=== PATIENT | male | born 1975 | race Two or more races ===

== ENCOUNTER → 2020-02-06 | Emergency (ER) | payer MEDICAID ==
[~2020-02-06] VITALS: Ht 182.9 cm; Wt 104.3 kg
[2020-02-07 00:55] VITALS: BP 149/97
== END | disposition home or self-care (01) ==
LOC: ER 22:02
DX: S62.512A Displaced fracture of proximal phalanx of left thumb, initial encounter for closed fracture (principal); I10 Essential (primary) hypertension; F17.210 Nicotine dependence, cigarettes, uncomplicated; Z98.890 Other specified postprocedural states; X58.XXXA Exposure to other specified factors, initial encounter; Y93.89 Activity, other specified; Y92.89 Other specified places as the place of occurrence of the external cause; Y99.8 Other external cause status
CPT/HCPCS: 29125; 73130

== ENCOUNTER 2025-05-30 02:20 | Emergency (ER) | payer MEDICAID ==
[~2025-05-30] VITALS: Ht 182.9 cm; Wt 104.5 kg
[2025-05-30 02:36] VITALS: RESP 19; TEMP 97.5; O2SAT 97
[2025-05-30 02:49] VITALS: PULSE 70
--- NOTE | 2025-05-30 03:32 | DVH ---
CHEST RADIOGRAPH Indication: Hypertension Technique: Single frontal view of the chest was obtained COMPARISON: None FINDINGS: Lines and Tubes: None Lungs: Clear Pleura: No effusion. No pneumothorax. Cardiomediastinal contours: Unremarkable Bones: Unremarkable IMPRESSION: 1. No acute disease.
[2025-05-30 03:33] LABS: Hematocrit 47.8 % (41.0-53.0); Hemoglobin 16.7 g/dL (13.5-17.5); Mean Corpuscular Hemoglobin 30.3 pg (28.0-32.0); Mean Corpuscular Volume 86.7 fL (80.0-100.0); Nucleated Red Blood Cells % 0.1 %
[2025-05-30 03:41] LABS: Chloride 101 mmol/L (98-107); Potassium 3.8 mmol/L (3.5-5.1); Sodium 139 mmol/L (136-145)
[2025-05-30 03:42] LABS: Anion Gap 7 (5-15); Carbon Dioxide 31 mmol/L (20-31)
[2025-05-30 03:43] LABS: Calcium 9.5 mg/dL (8.7-10.4)
[2025-05-30 03:48] LABS: BUN/Creatinine Ratio 15.5 (10.0-20.0); Blood Urea Nitrogen 18 mg/dL (9-23)
[2025-05-30 04:13] LABS: Glucose 115 mg/dL (74-106)
--- NOTE | 2025-05-30 04:14 | ED.PDOC ---
History of Present Illness HPI Comments 50-year-old male presents with chief complaint of hypertension, with associated intermittent shortness of breath, fatigue, headache, lightheadedness, dizziness, nausea, chills, cold sweats, and lip numbness. Patient reports checking and noticing his blood pressure being elevated and having symptoms since yesterday. Last measured his blood pressure at 1700, yesterday, and reports it being in the 200's systolically then. History of noncompliance and HTN. Patient reports on not taking any mediations for his blood pressure for several years but monitors it, daily. He denies any chest pain, palpitations, vomiting, urinary symptoms, fever, or further associated symptoms. Chief Complaint: High Blood Pressure Time Seen by MD: 03:30 Reviewed Notes: Nurses Notes, Medications, Allergies Allergies: Coded Allergies: NO KNOWN ALLERGIES (Unverified , 02/06/20) Information Source: Patient Mode of Arrival: Wheelchair Severity: Moderate Timing: Hours Duration: Since onset Prehospital treatment: None Review of Systems: REVIEW OF SYSTEMS: Fatigue. Chills, cold sweats, No fever, HEENT: Lip numbness No neck pain, no blurred vision Cardiac: Hypertension. Lightheadedness. No chest pain. No palpitations. Lungs: shortness of breath, GI: nausea No abdominal pain, no vomiting Musculoskeletal: No joint pain , no back pain Skin: No rash, no wound Neuro: headache, dizziness, no syncope Vital Signs Vital Signs Date Time Temp Pulse Resp B/P (MAP) Pulse Ox O2 Delivery O2 Flow Rate FiO2 05/30/25 04:37 182/120 (140) 05/30/25 02:49 70 05/30/25 02:36 97.5 19 97 97.5 Physical Exam General: Awake, alert and oriented. No acute distress. Skin: Skin in warm, dry and intact without rashes or lesions. HEENT: The head is normocephalic and atraumatic. Conjunctivae are clear without exudates or hemorrhage. Sclera is non-icteric. Neck: Normal range of motion. No JVD. Cardiac: Regular rate Respiratory: No signs of respiratory distress. No Stridor. Extremities: Upper and lower extremities are atraumatic in appearance without deformity. Neurological: The patient is awake, alert and oriented to person, place, and time with normal speech. Speech is clear. There is no facial asymmetry. Psychiatric: Appropriate mood and affect. Good judgement and insight. Past Medical History PAST MEDICAL HISTORY: HTN Past Medical History (Other): Noncompliance Surgical History (Other): Vasectomy Family History Family History: Reviewed,noncontributory to illness Social History Smoker: Cigarettes Alcohol: Occasionally Drugs: Denies Drug Use, Methamphetamine Differential Dx Considerations may include: Differential diagnoses considered include acute ischemic coronary syndrome, aortic dissection, cardiac tamponade, mediastinitis, pulmonary embolus, pneumothorax, tension pneumothorax, esophageal rupture, coronary artery vasospasm, myocarditis, pericarditis, pneumonia, pulmonary edema, esophageal tear, pancreatitis, aortic stenosis, dilated cardiomyopathy, hypertrophic cardiomyopathy, mitral valve prolapse, malignancy, pleuritis, pneumomediastinum, primary pulmonary hypertension, cholecystitis, esophageal spasm, esophagus, gastritis, GERD, peptic ulcer disease, costochondritis, fibromyalgia, rib fracture, herpes zoster, radicular syndromes, thoracic outlet syndrome, somatization. Medication noncompliance, hypertensive emergency X-Ray, Labs, Meds, VS Vital Signs Date Time Temp Pulse Resp B/P (MAP) Pulse Ox O2 Delivery O2 Flow Rate FiO2 05/30/25 04:37 182/120 (140) 05/30/25 04:37 182/120 05/30/25 02:58 195/124 05/30/25 02:49 70 05/30/25 02:36 97.5 76 19 195/124 (147) 97 97.5 Lab Test 05/30/25 03:14 Range/Units White Blood Count 11.1 H 4.4-10.8 10^3/uL Red Blood Count 5.52 4.5-5.90 10^6/uL Hemoglobin 16.7 13.5-17.5 g/dL Hematocrit 47.8 41.0-53.0 % Mean Corpuscular Volume 86.7 80.0-100.0 fL Mean Corpuscular Hemoglobin 30.3 28.0-32.0 pg Mean Corpuscular Hemoglobin Concent 34.9 32.0-36.0 g/dL Red Cell Distribution Width 14.5 H 11.8-14.3 % Platelet Count 258 140-450 10^3/uL Mean Platelet Volume 8.1 6.9-10.8 fL Neutrophils (%) (Auto) 74.1 37.0-80.0 % Lymphocytes (%) (Auto) 17.5 10.0-50.0 % Monocytes (%) (Auto) 6.4 0.0-12.0 % Eosinophils (%) (Auto) 1.3 0.0-7.0 % Basophils (%) (Auto) 0.7 0.0-2.0 % Neutrophils # (Auto) 8.2 1.6-8.6 10 ^3/uL Lymphocytes # (Auto) 1.9 0.4-5.4 10 ^3/uL Monocytes # (Auto) 0.7 0-1.3 10 ^3/uL Eosinophils # (Auto) 0.1 0-0.8 10 ^3/uL Basophils # (Auto) 0.1 0-0.2 10 ^3/uL Nucleated Red Blood Cells 0.1 % Sodium Level 139 136-145 mmol/L Potassium Level 3.8 3.5-5.1 mmol/L Chloride Level 101 98-107 mmol/L Carbon Dioxide Level 31 20-31 mmol/L Anion Gap 7 5-15 Blood Urea Nitrogen 18 9-23 mg/dL Creatinine 1.16 0.700-1.30 mg/dL Glomerular Filtration Rate Calc 76 >90 mL/min BUN/Creatinine Ratio 15.5 10.0-20.0 Serum Glucose 115 H 74-106 mg/dL Calcium Level 9.5 8.7-10.4 mg/dL Troponin I High Sensitivity 12 </=54 ng/L B-Type Natriuretic Peptide 6.45 0-100 pg/mL Current Medications Medications (Trade) Dose Ordered Sig/Aung Route Start Time Stop Time Status Last Admin Clonidine HCl (Catapres Tablet) 0.2 mg ONCE ONCE PO 05/30/25 03:00 05/30/25 03:01 DC 05/30/25 02:58 Ondansetron HCl (Zofran Po) 4 mg ONCE ONCE PO 05/30/25 04:00 05/30/25 04:01 DC 05/30/25 04:[address] [address] Ph: [phone] DIAGNOSTIC IMAGING Diagnostic Imaging Report : [id number] Signed PATIENT: TANNER REED ACCT: [id number] UNIT: [id number] : 1975 LOC: ER ROOM / BED: / AGE / SEX: 50 / M ADM STATUS: REG ER SERVICE 8 ORDERING PHYSICIAN: KYREE FREDERICK MD PROCEDURE(s): CXR1 - CHEST XRAY 1 VIEW REASON: Hypertension ORDER NUMBER(s): [id number], ACCESSION NUMBER(s): [id number] CHEST RADIOGRAPH Indication: Hypertension Technique: Single frontal view of the chest was obtained COMPARISON: None FINDINGS: Lines and Tubes: None Lungs: Clear Pleura: No effusion. No pneumothorax. Cardiomediastinal contours: Unremarkable Bones: Unremarkable IMPRESSION: 1. No acute disease. ATED BY: FRANK ESPITIA MD DICTATED DATE/TIME: 05/30/25328 SIGNED BY: FRANK ESPITIA MD SIGNED DATE/TIME: 05/30/25328 CC: Time of 1ST Reevaluation: 04:00 Reevaluation 1ST: Unchanged Patient Education/Counseling: Other (Need for admission) Family Education/Counseling: No Family Present SEPSIS Sepsis Screen Date sepsis recognized/suspect: May 30, 2025 Time Sepsis recognized/suspect: 224 Recent Procedure: No On Antibiotic Therapy: No Respiratory Rate >20: No Heart Rate >90: No Temp<36 C (96.8 F) or >38.3 C: No SBP <90 or MAP <65 mmHG: No New Acute Mental Status Change: No Is the patient on CPAP, BIPAP,: No Physician Orders Chest Xray 1 View (05/30/25 02:49) Oxygen (05/30/25 ) Community Services Manager (05/30/25 ) Covid19 Antigen Julieta (05/30/25 ) Rapid Influenza A&B (05/30/25 04:36) Vital Signs Date Time Temp Pulse Resp B/P (MAP) Pulse Ox O2 Delivery O2 Flow Rate FiO2 05/30/25 04:37 182/120 (140) 05/30/25 04:37 182/120 05/30/25 02:58 195/124 05/30/25 02:49 70 05/30/25 02:36 97.5 76 19 195/124 (147) 97 97.5 Laboratory Tests Test 05/30/25 03:14 White Blood Count 11.1 10^3/uL (4.4-10.8) H Departure 1 Departure Time of Disposition: 04:36 Impression: Primary Impression: Hypertensive urgency Disposition: 09 ADMITTED INPATIENT Condition: Stable Comments 50-year-old male with a untreated hypertension presents with hypertensive urgency Patient is stabilized in the emergency department Patient admitted to hospitalist service for further treatment, evaluation and monitoring. Extensive evaluation was performed in attempt to identify or rule out: (See differential diagnosis section) The following tests were ordered, and results were reviewed by me and discussed with patient: (See diagnostic results section) The following test were independently interpreted by me: EKG I reviewed and agreed with the following test results read by other providers: Chest x-ray I reviewed the following notes from the pt's past medical encounters: April 07, 2020 encounter for hand. Additional information was gathered from interviewing the following independent historians: N/A Discussion of management or test interpretation with external physician/other qualified health neonatal intensive care nurse: N/A Addressed an acute or chronic illness that poses a threat to life or bodily function: Hypertensive urgency Decision regarding hospitalization or escalation of hospital level of care: Risk and benefits of admission for further treatment of patient's condition was considered. Due to patient's current clinical condition, high risk of decline and poor outcome if discharged and need for further inpatient management and monitoring, patient will be admitted to the hospital. Drug therapy requiring intensive monitoring for toxicity: N/A Parenteral controlled substances: N/A Decision regarding elective major surgery with identified patient or procedure risk factors: N/A Decision regarding emergency major surgery: N/A Decision not to resuscitate or to de-escalate care because of poor prognosis: N/A Diagnosis or treatment significantly limited by social determinants of health: N/A Critical Care Note Critical Care Time?: No Stability Stability form required: No Heart Score Heart Score: Heart Score Response (Comments) Value History N/A 0 EKG N/A 0 Age N/A 0 Risk Factors N/A 0 Troponin N/A 0 Total 0 I personally scribed for KYREE FREDERICK MD ([email or web address]) on 05/30/25 at 04:14. Electronically submitted by Aubrey Gilbert ([email or web address]). KYREE FREDERICK MD May 30, 2025 04:14
[2025-05-30] MEDS: ONDANSETRON ODT 4 MG TAB PO ONE (04:36)
[2025-05-30 04:37] VITALS: BP 182/120
[2025-05-30] MEDS ORDERED: LABETALOL HCL 20 MG/4 ML VL IV ONE (04:45)
--- NOTE | 2025-05-30 09:57 | ECG ---
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
== END 2025-05-30 09:29 | disposition left against medical advice (07) ==
LOC: ER 02:20
DX: I16.0 Hypertensive urgency (principal); F17.210 Nicotine dependence, cigarettes, uncomplicated
CPT/HCPCS: 36415; 71045; 80048; 83880; 84484; 85025; 93005; 99285; Q0162; 96374

== ENCOUNTER 2025-09-15 16:18 | Inpatient (IN) | payer MEDICAID ==
[~2025-09-15] VITALS: Ht 182.9 cm; Wt 104.0 kg
--- NOTE | 2025-09-15 16:32 | ED.PDOC ---
History of Present Illness HPI Comments This is a 50 year-old male who presents to the ED via EMS with a chief complaint of HTN with associated symptoms of fatigue, nausea, and general weakness as of today. Per EMS, patients blood pressure read 206/118. Patient states he is not currently taking any medication for diagnosed HTN. Patient has no further complaints at this time and otherwise denies symptoms of chest pain, emesis, hematemesis, palpitations, dizziness, or LOC. Time Seen by MD: 16:21 Reviewed Notes: Medications, Allergies Allergies: Coded Allergies: NO KNOWN ALLERGIES (Unverified , 02/06/20) Information Source: Patient, Emergency Med Personnel Mode of Arrival: EMS Severity: Moderate Timing: Hours Duration: Since onset Associated signs and symptoms Fatigue, Weakness, Nausea, HTN Past Medical History PAST MEDICAL HISTORY: HTN Family History Family History: Reviewed,noncontributory to illness Social History Smoker: Cigarettes, Other (Vape ) Alcohol: Occasionally Drugs: Methamphetamine Lives In: Home Constitutional: reports: fatigue, weakness; denies: chills, diaphoresis, fever, malaise, sweats, others EENTM: denies: blurred vision, double vision, ear bleeding, ear discharge, ear drainage, ear pain, ear ringing, eye pain, eye redness, hearing loss, mouth pain, mouth swelling, nasal discharge, nose bleeding, nose congestion, nose pain, photophobia, tearing, throat pain, throat swelling, voice changes, others Respiratory: denies: cough, hemoptysis, orthopnea, SOB at rest, shortness of breath, SOB with excertion, stridor, wheezing, others Cardiovascular: denies: chest pain, dizzy spells, diaphoresis, Dyspnea on exertion, edema, irregular heart beat, left arm pain, lightheadedness, palpitations, PND, syncope, others Gastrointestinal: reports: nausea; denies: abdomen distended, abdominal pain, blood streaked bowels, constipated, diarrhea, dysphagia, difficulty swallowing, hematemesis, melena, poor appetite, poor fluid intake, rectal bleeding, rectal pain, vomiting, others Genitourinary: denies: burning, dysuria, flank pain, frequency, hematuria, incontinence, penile discharge, penile sore, pain, testicle pain, testicle swelling, urgency, others Neurological: denies: dizziness, fainting, headache, left sided numbness, left sided weakness, numbness, paresthesia, pre-existing deficit, right sided numbness, right sided weakness, seizure, speech problems, tingling, tremors, weakness, others Musculoskeletal: denies: back pain, gout, joint pain, joint swelling, muscle pain, muscle stiffness, neck pain, others Integumetry: denies: bruises, change in color, change in hair/nails, dryness, laceration, lesions, lumps, rash, wounds, others Allergic/Immunocompromised: denies: Difficulty Healing, Frequent Infections, Hives, Itching, others Hematologic/Lymphatic: denies: anemia, blood clots, easy bleeding, easy bruising, swollen glands, others Endocrine: denies: excessive hunger, excessive sweating, excessive thirst, excessive urination, flushing, intolerance to cold, intolerance to heat, unexplained weight gain, unexplained weight loss, others Psychiatric: denies: anxiety, bipolar disorder, depression, hopeless, panic disorder, schizophrenia, sleepless, suicidal, others All Other Systems: Reviewed and Negative Physical Exam General Appearance: Moderate Distress HEENT: Normal ENT Inspection, Pharynx Normal, TMs Normal Neck: Full Range of Motion, Non-Tender, Normal, Normal Inspection Respiratory: Chest Non-Tender, Lungs Clear, No Accessory Muscle Use, No Respiratory Distress, Normal Breath Sounds Cardiovascular: No Edema, No JVD, No Murmur, No Gallop, Normal Peripheral Pulses, Regular Rate/Rhythm Breast Exam: Deferred Gastrointestinal: No Organomegaly, Non Tender, No Pulsatile Mass, Normal Bowel Sounds, Soft Genitalia: Deferred Pelvic: Deferred Rectal: Deferred Extremities: No calf tenderness, Normal capillary refill, Normal inspection, Normal range of motion, Non-tender, No pedal edema Musculoskeletal : Apperance: Normal Neurologic: Alert, planimeter operator II-XII nml as Tested, No Motor Deficits, Normal Affect, Normal Mood, No Sensory Deficits Cerebellar Function: Normal Reflexes: Normal Skin: Dry, Normal Color, Warm Peripheral Pulses: 3+ Radial (R), 3+ Radial (L) Lymphatic: No Adenopathy Was a procedure done? Was a procedure done?: No EKG EKG : Pulse Rate (adult): 78 [place]: Normal Cardiac Rhythm: NSR Block: None Hypertrophy: None ST: Normal Differential Dx Considerations may include: HTN X-Ray, Labs, Meds, VS Vital Signs Date Time Temp Pulse Resp B/P (MAP) Pulse Ox O2 Delivery O2 Flow Rate FiO2 09/15/25 16:40 98.6 80 20 180/120 99 98.6 09/15/25 16:34 78 09/15/25 16:18 78 Lab Test 09/15/25 16:48 Range/Units White Blood Count 7.6 4.4-10.8 10^3/uL Red Blood Count 4.99 4.5-5.90 10^6/uL Hemoglobin 14.8 13.5-17.5 g/dL Hematocrit 43.0 41.0-53.0 % Mean Corpuscular Volume 86.2 80.0-100.0 fL Mean Corpuscular Hemoglobin 29.6 28.0-32.0 pg Mean Corpuscular Hemoglobin Concent 34.3 32.0-36.0 g/dL Red Cell Distribution Width 13.8 11.8-14.3 % Platelet Count 274 140-450 10^3/uL Mean Platelet Volume 8.1 6.9-10.8 fL Neutrophils (%) (Auto) 70.9 37.0-80.0 % Lymphocytes (%) (Auto) 19.1 10.0-50.0 % Monocytes (%) (Auto) 8.1 0.0-12.0 % Eosinophils (%) (Auto) 1.2 0.0-7.0 % Basophils (%) (Auto) 0.7 0.0-2.0 % Neutrophils # (Auto) 5.4 1.6-8.6 10 ^3/uL Lymphocytes # (Auto) 1.4 0.4-5.4 10 ^3/uL Monocytes # (Auto) 0.6 0-1.3 10 ^3/uL Eosinophils # (Auto) 0.1 0-0.8 10 ^3/uL Basophils # (Auto) 0 0-0.2 10 ^3/uL Nucleated Red Blood Cells 0.1 % Sodium Level Pending Potassium Level Pending Chloride Level Pending Carbon Dioxide Level Pending Anion Gap Pending Blood Urea Nitrogen Pending Creatinine Pending Glomerular Filtration Rate Calc Pending BUN/Creatinine Ratio Pending Serum Glucose Pending Calcium Level Pending Troponin I High Sensitivity Pending Patient alert. Complaining of having high blood pressure. Chest discomfort. Vitals stable. Answering questions. EKG reviewed does not show any acute changes. Was given clonidine. He does not take blood pressure medication. Possibly will need echocardiogram. High-risk. Explained to the patient. Continue monitoring. Images Reviewed?: Images reviewed and evaluated by me Time of 1ST Reevaluation: 17:18 Reevaluation 1ST: Unchanged Patient Education/Counseling: Diagnosis, Treatment Family Education/Counseling: No Family Present SEPSIS Sepsis Screen Physician Orders Troponin-I Hs (09/15/25 16:24) Basic Metabolic Panel (09/15/25 16:24) Electrocardigram (09/15/25 16:46) Vital Signs Date Time Temp Pulse Resp B/P (MAP) Pulse Ox O2 Delivery O2 Flow Rate FiO2 09/15/25 16:40 98.6 80 20 180/120 99 98.6 09/15/25 16:34 78 09/15/25 16:18 78 Laboratory Tests Test 09/15/25 16:48 White Blood Count 7.6 10^3/uL (4.4-10.8) Departure 1 Departure Time of Disposition: 17:00 Impression: Primary Impression: Chest pain of unknown etiology Additional Impression: Hypertensive emergency Disposition: 09 ADMITTED INPATIENT Admit to: Med Surg Condition: Guarded Critical Care Note Critical Care Time?: Yes (90 min-critical care time only) Stability Stability form required: No Heart Score Heart Score: Heart Score Response (Comments) Value History Slightly Suspicious 0 EKG Normal 0 Age 45-64 1 Risk Factors No known risk factors 0 Troponin Normal limit 0 Total 1 I personally scribed for JOSE ROSALES MD ([email or web address]) on 09/15/25 at 16:32. Electronically submitted by Abril Rosado ([employer]). I personally scribed for JOSE ROSALES MD ([email or web address]) on 09/15/25 at 16:34. Electronically submitted by Abril Rosado ([employer]). JOSE ROSALES MD Sep 15, 2025 16:32
[2025-09-15 17:08] LABS: Hematocrit 43.0 % (41.0-53.0); Hemoglobin 14.8 g/dL (13.5-17.5); Mean Corpuscular Hemoglobin 29.6 pg (28.0-32.0); Mean Corpuscular Volume 86.2 fL (80.0-100.0); Nucleated Red Blood Cells % 0.1 %
[2025-09-15 17:18] LABS: Chloride 104 mmol/L (98-107); Potassium 3.9 mmol/L (3.5-5.1); Sodium 140 mmol/L (136-145)
[2025-09-15 17:19] LABS: Anion Gap 9 (5-15); Calcium 8.8 mg/dL (8.7-10.4); Carbon Dioxide 27 mmol/L (20-31)
[2025-09-15 17:24] LABS: BUN/Creatinine Ratio 18.0 (10.0-20.0); Blood Urea Nitrogen 18 mg/dL (9-23)
[2025-09-15 17:26] LABS: Glucose 106 mg/dL (74-106)
[2025-09-15 17:47] VITALS: PULSE 87; RESP 18; O2SAT 95
--- NOTE | 2025-09-15 18:14 | ECG ---
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
[2025-09-15] MEDS ORDERED: ACETAMINOPHEN 325 MG TAB PO PRN (18:30)
[2025-09-15] MEDS ORDERED: DOCUSATE SOD 100 MG CAP PO PRN (18:30)
[2025-09-15] MEDS ORDERED: HYDROcodone-ACET 5/325MG TAB PO PRN (18:30)
[2025-09-15] MEDS ORDERED: ONDANSETRON HCL 4 MG/2 ML VIAL IV PRN (18:30)
--- NOTE | 2025-09-15 20:09 | DVHHP2 ---
History of Present Illness Reason for Visit: Hypertensive emergency History of Present Illness The patient is a 50-year-old male with past medical history of hypertension who presented to [facility] ED with complaint of elevated blood pressure. Patient reports he has been experiencing high blood pressure associate d with fatigue, nausea, chest pressure, generalized weakness. Patient blood pressure read 206/118, states he is not currently taking any medication for diagnosed hypertension. Patient was seen and evaluated in the ED, laboratory data shows WBC 7.6, platelets 274, sodium 140, potassium 3.9, BUN 18, creatinine 1.00, glucose 106, troponin 19, blood pressure 200/122, pulse 86, temperature 98.0 F, O2 saturation 96% on room air. Patient was given clonidine 0.2 mg by mouth x1, please see medication orders section in the computer. On my assessment, patient denied chest pain, no dizziness, headache, diaphoresis, shortness of breaths, no diarrhea, nausea, vomiting, fever, no chills. Patient was admitted for further evaluation and medical management. Past Medical History Hypertension Past Surgical History Denies all surgeries Family History Reviewed, noncontributory to the management of this case. Past Social History Patient lives at home, smokes cigarettes vapes, drinks alcohol occasionally, uses methamphetamine. Review of Systems Constitutional: Yes: Weakness, Other (Fatigue); No: Fever, Chills, Sweats, Malaise Eyes: No: Pain, Vision change, Conjunctivae inflammation, Eyelid inflammation, Other, Redness ENT: No: Ear pain, Ear discharge, Nose pain, Nose discharge, Nose congestion, Mouth pain, Mouth swelling, Throat pain, Throat swelling, Other Respiratory: No: Cough, Dry, Shortness of breath, SOB with excertion, Wheezing, Hemoptysis, Pleuritic Pain, Sputum, Wheezing, Other Cardiovascular: Chest Pain, Other (Hypertension); No: Palpitations, Orthopnea, Paroxysmal Noc. Dyspnea, Edema, Lt Headedness Gastrointestinal: No: Nausea, Vomiting, Abdominal Pain, Diarrhea, Constipation, Melena, Hematochezia, Other Genitourinary: No Dysuria, No Frequency, No Incontinence, No Hematuria, No Retention, No Other Musculoskeletal: No: other, neck pain, shoulder pain, arm pain, back pain, hand pain, leg pain, foot pain Skin: No: Rash, Lesions, Jaundice, Bruising, Other Neurological: No: Weakness, Numbness, Incoordination, Change in speech, Confus ion, Seizures, Other Allergies: Coded Allergies: NO KNOWN ALLERGIES (Unverified , 02/06/20) Medications Current Medications Medications Dose Ordered Sig/Aung Route Start Time Stop Time Status Last Admin Dose Admin Amlodipine Besylate 10 mg DAILY PO 09/16/25 10:00 Clonidine HCl 0.1 mg Q4HP PRN PO 09/15/25 18:30 09/15/25 19:42 0.1 MG Metoprolol Tartrate 50 mg BID PO 09/15/25 22:00 Sodium Chloride 10 ml Q8HR IV 09/15/25 22:00 Acetaminophen/ Hydrocodone Bitart 1 tab Q4HP PRN PO 09/15/25 18:30 Ondansetron HCl 4 mg Q4HP PRN IV 09/15/25 18:30 Docusate Sodium 100 mg BIDPRN PRN PO 09/15/25 18:30 Acetaminophen 650 mg Q6HP PRN PO 09/15/25 18:30 Exam Vital Signs Vital Signs Date Time Temp Pulse Resp B/P (MAP) Pulse Ox O2 Delivery O2 Flow Rate FiO2 09/15/25 19:42 210/126 09/15/25 19:21 85 13 95 09/15/25 17:47 98.0 98.0 09/15/25 17:47 Room Air* 0 21 General Appearance: Alert, Oriented X3, Cooperative, No acute distress HEENT: Atraumatic, PERRLA, EOMI, Mucous membr. moist/pink Respiratory: Clear to auscultation, Normal air movement Cardiovascular: Regular rate, Normal S1, Normal S2, No murmurs Abdominal: Normal bowel sounds, Soft, No tenderness, No hepatospenomegaly, No masses Extremities: No clubbing, No cyanosis, No edema, Normal pulses, No tenderness/swelling Skin: No rashes, No breakdown, No significant lesion Neuro: Normal speech, Normal tone, Sensation intact, Cranial nerves 3-12 NL, Reflexes 2+, Other (Weakness) Psych/Mental Status: Mental status NL, Mood NL Labs/Xrays Labs Test 09/15/25 16:48 Range/Units White Blood Count 7.6 4.4-10.8 10^3/uL Red Blood Count 4.99 4.5-5.90 10^6/uL Hemoglobin 14.8 13.5-17.5 g/dL Hematocrit 43.0 41.0-53.0 % Mean Corpuscular Volume 86.2 80.0-100.0 fL Mean Corpuscular Hemoglobin 29.6 28.0-32.0 pg Mean Corpuscular Hemoglobin Concent 34.3 32.0-36.0 g/dL Red Cell Distribution Width 13.8 11.8-14.3 % Platelet Count 274 140-450 10^3/uL Mean Platelet Volume 8.1 6.9-10.8 fL Neutrophils (%) (Auto) 70.9 37.0-80.0 % Lymphocytes (%) (Auto) 19.1 10.0-50.0 % Monocytes (%) (Auto) 8.1 0.0-12.0 % Eosinophils (%) (Auto) 1.2 0.0-7.0 % Basophils (%) (Auto) 0.7 0.0-2.0 % Neutrophils # (Auto) 5.4 1.6-8.6 10 ^3/uL Lymphocytes # (Auto) 1.4 0.4-5.4 10 ^3/uL Monocytes # (Auto) 0.6 0-1.3 10 ^3/uL Eosinophils # (Auto) 0.1 0-0.8 10 ^3/uL Basophils # (Auto) 0 0-0.2 10 ^3/uL Nucleated Red Blood Cells 0.1 % Sodium Level 140 136-145 mmol/L Potassium Level 3.9 3.5-5.1 mmol/L Chloride Level 104 98-107 mmol/L Carbon Dioxide Level 27 20-31 mmol/L Anion Gap 9 5-15 Blood Urea Nitrogen 18 9-23 mg/dL Creatinine 1.00 0.700-1.30 mg/dL Glomerular Filtration Rate Calc 91 >90 mL/min BUN/Creatinine Ratio 18.0 10.0-20.0 Serum Glucose 106 74-106 mg/dL Calcium Level 8.8 8.7-10.4 mg/dL Troponin I High Sensitivity 19 </=54 ng/L SEPSIS Sepsis Screen Date sepsis recognized/suspect: Sep 15, 2025 Time Sepsis recognized/suspect: 1750 Recent Procedure: No On Antibiotic Therapy: No Respiratory Rate >20: No Heart Rate >90: No Temp<36 C (96.8 F) or >38.3 C: No SBP <90 or MAP <65 mmHG: No New Acute Mental Status Change: No Is the patient on CPAP, BIPAP,: No Physician Orders Amlodipine Tablet (Norvasc Tablet) (09/16/25 10:00) Clonidine Hcl Tablet (Catapres Tablet) (09/15/25 18:30) Metoprolol Tartrate Tablet (Lopressor Ta (09/15/25 22:00) * Cardiology Consult (09/15/25 18:24) Allergies (09/15/25 18:24) Code Status (09/15/25 18:24) Sodium Chloride Lock (Saline Lock Ns) (09/15/25 22:00) Oxygen Per Hour (09/15/25 18:24) Hydrocodone-Acet 5/325mg Tab ([place] 5/32 (09/15/25 18:30) Ondansetron Hcl (Zofran) (09/15/25 18:30) Docusate Sodium Capsule (Colace Capsule) (09/15/25 18:30) Complete Blood Count (09/16/25 04:00) Comprehensive Metabolic Panel (09/16/25 04:00) Cardiac Diet-2gna,Lofat,Lochol (09/15/25 Dinner) Condition: Serious (09/15/25 18:24) Acetaminophen Tablet (Tylenol Tablet) (09/15/25 18:30) Bedrest With Bathroom Privileg (09/15/25 18:24) Sequential Compression Device (09/15/25 ) Vital Signs Date Time Temp Pulse Resp B/P (MAP) Pulse Ox O2 Delivery O2 Flow Rate FiO2 09/15/25 19:42 210/126 09/15/25 19:21 85 13 199/125 (149) 95 09/15/25 19:18 199/125 09/15/25 17:47 98.0 87 18 200/122 (148) 95 98.0 09/15/25 17:47 87 18 95 Room Air* 0 21 09/15/25 17:17 98.2 63 17 190/124 (146) 95 98.2 09/15/25 16:40 98.6 80 20 180/120 99 98.6 09/15/25 16:34 78 09/15/25 16:18 78 Laboratory Tests Test 09/15/25 16:48 White Blood Count 7.6 10^3/uL (4.4-10.8) Medications Medications Dose Ordered Sig/Aung Route Start Time Stop Time Status Last Admin Dose Admin Amlodipine Besylate 10 mg ONCE ONCE PO 09/15/25 18:30 09/15/25 18:39 DC 09/15/25 19:18 10 MG Clonidine HCl 0.1 mg Q4HP PRN PO 09/15/25 18:30 09/15/25 19:42 0.1 MG Assessment/Plan Assessment/Plan Hypertensive emergency Chest pain of unknown etiology Plan 1. Admit to telemetry unit 2. Breathing treatment 3. Pain control management 4. Management of fluids and electrolytes 5. Consultation for Cardiology 6. Diagnostic tests chest x-ray 7. DVT prophylaxis-on SCDs 8. Repeat labs CBC, CMP in a.m. 9. Continue with current medical management 10. Treatment plan discussed with patient and RN. Patient verbalized understanding. Plan discussed with: Patient, Other (RN) My Orders Orders - NANCY MATT DNP Procedure Category Date Status Time Amlodipine Tablet PHA 09/16/25 In Process (Norvasc Tablet) 10:00 Clonidine Hcl Tablet PHA 09/15/25 In Process (Catapres Tablet) 18:30 Metoprolol Tartrate PHA 09/15/25 In Process Tablet (Lopressor Ta 22:00 * Cardiology Consult CONS 09/15/25 Transmitted 18:24 Allergies ANIBAL 09/15/25 In Process 18:24 Code Status CODE 09/15/25 Transmitted 18:24 Sodium Chloride Lock PHA 09/15/25 In Process (Saline Lock Ns) 22:00 Oxygen Per Hour RT 09/15/25 Transmitted 18:24 Hydrocodone-Acet PHA 09/15/25 In Process 5/325mg Tab ([place] 18:30 Ondansetron Hcl PHA 09/15/25 In Process (Zofran) 18:30 Docusate Sodium PHA 09/15/25 In Process Capsule (Colace 18:30 Complete Blood Count LAB 09/16/25 Verified 04:00 Comprehensive LAB 09/16/25 Verified Metabolic Panel 04:00 Cardiac DIET 09/15/25 Transmitted Diet-2gna,Lofat,Lochol Dinner Condition: Serious ANIBAL 09/15/25 In Process 18:24 Acetaminophen Tablet PHA 09/15/25 In Process (Tylenol Tablet) 18:30 Bedrest With Bathroom ANIBAL 09/15/25 In Process Privileg 18:24 Sequential ANIBAL 09/15/25 In Process Compression Device Problem List: (1) Hypertensive emergency (2) Chest pain of unknown etiology Date of Service: Sep 15, 2025 Billing Provider: NANCY MATT DNP Common Visit Codes: [id number] INP/OBS CARE (HIGH) NANCY MATT DNP Sep 15, 2025 20:09
[2025-09-15] MEDS ORDERED: MORPHINE SULFATE INJ 2 MG/ml SYRG IV PRN (20:15)
[2025-09-15] MEDS ORDERED: NITROGLYCERIN 0.4 MG SL TAB SL PRN (20:15)
[2025-09-15] MEDS ORDERED: hydrALAZINE HCL 20 MG/ML VL IV PRN (20:45)
[2025-09-15] MEDS: SODIUM CHLOR 0.9% PF (SALINE LOCK) 10ML VIAL/SYR IV SCH (21:26)
[2025-09-15] MEDS: METOPROLOL TARTRATE 50 MG TAB PO SCH (22:48)
[2025-09-15 23:55] VITALS: PULSE 64; RESP 17; O2SAT 96
[2025-09-16] VITALS (10 sets, daily range): BP systolic 112–146; BP diastolic 72–103; PULSE 55–64; RESP 15–20; TEMP 97.8–98.3; O2SAT 95–98
[2025-09-16 07:21] LABS: Hematocrit 39.3 % (41.0-53.0); Hemoglobin 13.7 g/dL (13.5-17.5); Mean Corpuscular Hemoglobin 30.1 pg (28.0-32.0); Mean Corpuscular Volume 86.3 fL (80.0-100.0); Nucleated Red Blood Cells % 0.1 %
[2025-09-16 07:49] LABS: Alanine Aminotransferase 33 U/L (7-40); Albumin 3.9 g/dL (3.2-4.8); Alkaline Phosphatase 78 U/L (46-116); Anion Gap 10 (5-15); BUN/Creatinine Ratio 17.2 (10.0-20.0); Blood Urea Nitrogen 16 mg/dL (9-23); Calcium 8.7 mg/dL (8.7-10.4); Carbon Dioxide 27 mmol/L (20-31); Chloride 103 mmol/L (98-107); Glucose 84 mg/dL (74-106); Potassium 3.9 mmol/L (3.5-5.1); Sodium 140 mmol/L (136-145); Total Protein 6.9 g/dL (5.7-8.2)
[2025-09-16 07:50] LABS: Bilirubin, Total 0.8 mg/dL (0.2-1.0)
--- NOTE | 2025-09-16 11:55 | DVHPN2 ---
Reviewed: Care Plan, H&P, Labs, Medications, Previous Orders, Radiology Changes from previous H/P or p: No Changes Eyes: No Pain, No Vision change, No Conjunctivae inflammation, No Eyelid inflammation, No Other, No Redness ENT: No Ear pain, No Ear discharge, No Nose pain, No Nose discharge, No Nose congestion, No Mouth pain, No Mouth swelling, No Throat pain, No Throat swelling, No Other Cardiovascular: Chest Pain; No Palpitations, No Orthopnea, No Paroxysmal Noc. Dyspnea, No Edema, No Lt Headedness; Other (Hypertension) Respiratory: No Cough, No Dry, No Shortness of breath, No SOB with excertion, No Wheezing, No Hemoptysis, No Pleuritic Pain, No Sputum, No Other Gastrointestinal: No Nausea, No Vomiting, No Abdominal Pain, No Diarrhea, No Constipation, No Melena, No Hematochezia, No Other Genitourinary: No Dysuria, No Frequency, No Incontinence, No Hematuria, No Retention, No Other Musculoskeletal: No other, No neck pain, No shoulder pain, No arm pain, No back pain, No hand pain, No leg pain, No foot pain Skin: No Rash, No Lesions, No Jaundice, No Bruising, No Other Objective Vitals Vital Signs Date Time Temp Pulse Resp B/P (MAP) Pulse Ox O2 Delivery O2 Flow Rate FiO2 09/16/25 08:34 98.3 59 18 117/76 (90) 95 98.3 09/16/25 08:00 Room Air* 0 21 Intake/Output Intake and Output 09/16/25 07:00 Intake Total 350 ml Balance 350 ml Intake Oral 350 ml Medications Current Medications Medications Dose Ordered Sig/Aung Route Start Time Stop Time Status Last Admin Dose Admin Amlodipine Besylate 10 mg DAILY PO 09/16/25 10:00 09/16/25 08:29 10 MG Metoprolol Tartrate 50 mg BID PO 09/15/25 22:00 09/16/25 08:29 50 MG Sodium Chloride 10 ml Q8HR IV 09/15/25 22:00 09/16/25 05:47 10 ML Acetaminophen/ Hydrocodone Bitart 1 tab Q4HP PRN PO 09/15/25 18:30 Ondansetron HCl 4 mg Q4HP PRN IV 09/15/25 18:30 Docusate Sodium 100 mg BIDPRN PRN PO 09/15/25 18:30 Acetaminophen 650 mg Q6HP PRN PO 09/15/25 18:30 Nitroglycerin 0.4 mg Q5MINP PRN SL 09/15/25 20:15 Morphine Sulfate 2 mg Q30M PRN IV 09/15/25 20:15 Clonidine HCl 0.2 mg TID PO 09/15/25 22:00 09/16/25 05:47 0.2 MG Hydralazine HCl 10 mg Q6HP PRN IV 09/15/25 20:45 Laboratory Results Laboratory Tests 09/16/25 04:47 Chemistry Test 09/15/25 16:48 09/16/25 04:47 Calcium Level 8.8 mg/dL (8.7-10.4) 8.7 mg/dL (8.7-10.4) Albumin 3.9 g/dL (3.2-4.8) Total Protein 6.9 g/dL (5.7-8.2) LFT Test 09/16/25 04:47 Alanine Aminotransferase (ALT) 33 U/L (7-40) Alkaline Phosphatase 78 U/L (46-116) Aspartate Amino Transferase (AST) 25 U/L (13-40) Total Bilirubin 0.8 mg/dL (0.2-1.0) Labs and/or images reviewed: Labs reviewed by me, Image(s) reviewed by me Assessment/Plan Assessment/Plan Hypertensive emergency with blood pressure 206/ 118 amlodipine metoprolol, cardiology consult for Dr. Pratt Chest pain troponin negative Urine drug screen and TSH pending Chronic current meth abuse: Counseling Medication noncompliance: Patient says he has high blood pressure for many years and did not want to take any medications; and daughter at the bedside. Educated the patient about complications of uncontrolled blood pressure including stroke blindness heart attack dialysis and losing toes. Plan discussed with: Patient My Orders Orders - DANNA ERIWN MD Procedure Category Date Status Time * Cardiology Consult CONS 09/16/25 Verified 11:43 Date of Service: Sep 16, 2025 Billing Provider: DANNA ERWIN MD Common Visit Codes: [id number] INP/OBS CARE(HIGH) Secondary Visit Codes: [id number] CARE PLAN 30 MINUTES DANNA ERWIN MD Sep 16, 2025 11:55
--- NOTE | 2025-09-16 14:15 | DVHINCON2 ---
VIANEY COOK RESIDENT 09/16/25 1415: Date Seen: Sep 16, [address] Casarez Reason for Consultation Hypertensive urgency, evaluation for cardiac etiology History of Present Illness This is a 50-year-old male with a past medical history of hypertension, non- compliant with medications, active vaping, methamphetamine, and alcohol use. The patient presented with markedly elevated blood pressure of 206/118 mmHg. He reports progressive decline in functional status over the past few weeks, with increasing fatigue and shortness of breath when climbing stairs or walking short distances. No chest pain, palpitations, or syncope reported. ED Course / Admission Summary: On admission, BP was 206/118 mmHg. He was started on amlodipine, clonidine and metoprolol with good response. EKG showed normal sinus rhythm with no ischemic changes. Troponin was obtained once and was negative. CBC, CMP, and TSH were within normal limits. Family History: Hypertension G8 FATHER Allergies: Coded Allergies: NO KNOWN ALLERGIES (Unverified , 02/06/20) Home Meds No Active Prescriptions or Reported Meds Current Medications Current Medications Medications (Trade) Dose Ordered Sig/Aung Route PRN Reason Start Time Stop Time Status Last Admin Amlodipine Besylate (Norvasc Tablet) 10 mg DAILY PO 09/16/25 10:00 09/16/25 08:29 Clonidine HCl (Catapres Tablet) 0.1 mg Q4HP PRN PO SBP>150 09/15/25 18:30 09/15/25 20:46 DC 09/15/25 19:42 Metoprolol Tartrate (Lopressor Tablet) 50 mg BID PO 09/15/25 22:00 09/16/25 08:29 Sodium Chloride (Saline Lock Ns) 10 ml Q8HR IV 09/15/25 22:00 09/16/25 13:43 Acetaminophen/ Hydrocodone Bitart ([place] 5/325MG Tab) 1 tab Q4HP PRN PO MODERATE PAIN (4-6 PAIN SCALE) 09/15/25 18:30 Ondansetron HCl (Zofran) 4 mg Q4HP PRN IV NAUSEA / VOMITING 09/15/25 18:30 Docusate Sodium (Colace Capsule) 100 mg BIDPRN PRN PO FOR CONSTIPATION 09/15/25 18:30 Acetaminophen (Tylenol Tablet) 650 mg Q6HP PRN PO PAIN SCALE 1-3 OR TEMP>100.4 09/15/25 18:30 Nitroglycerin (Ntrostat Sublingual) 0.4 mg Q5MINP PRN SL FOR CHEST PAIN 09/15/25 20:15 Morphine Sulfate 2 mg Q30M PRN IV FOR CHEST PAIN 09/15/25 20:15 Clonidine HCl (Catapres Tablet) 0.2 mg TID PO 09/15/25 22:00 09/16/25 13:42 Hydralazine HCl (Apresoline Injection) 10 mg Q6HP PRN IV SBP>150 09/15/25 20:45 Review of Systems Constitutional: Denies fever, chills, or weight loss. Cardiovascular: NYHA II, no chest pain Respiratory: Denies shortness of breath, cough, or wheezing. GI: Denies nausea, vomiting, or abdominal pain. : No dysuria or hematuria. Neuro: No dizziness, syncope, or focal deficits. Endocrine: No polyuria or polydipsia. All other systems reviewed and negative. Vital Signs Vital Signs Date Time Temp Pulse Resp B/P (MAP) Pulse Ox O2 Delivery O2 Flow Rate FiO2 09/16/25 13:42 144/103 09/16/25 13:00 97.9 55 20 96 97.9 09/16/25 08:00 Room Air* 0 21 Physical Exam General: Alert, oriented, in no acute distress. HEENT: No JVD, no carotid bruits. Cardiac: Regular rate and rhythm, no murmurs, rubs, or gallops. Lungs: Clear to auscultation bilaterally, no wheezes or rales. Abdomen: Soft, non-tender, non-distended. Extremities: No edema, pulses palpable. Neuro: No focal deficits. Labs/Diagnostic Data Labs Test 09/16/25 04:47 09/15/25 16:48 Range/Units White Blood Count 7.1 4.4-10.8 10^3/uL Red Blood Count 4.55 4.5-5.90 10^6/uL Hemoglobin 13.7 13.5-17.5 g/dL Hematocrit 39.3 L 41.0-53.0 % Mean Corpuscular Volume 86.3 80.0-100.0 fL Mean Corpuscular Hemoglobin 30.1 28.0-32.0 pg Mean Corpuscular Hemoglobin Concent 34.8 32.0-36.0 g/dL Red Cell Distribution Width 14.1 11.8-14.3 % Platelet Count 256 140-450 10^3/uL Mean Platelet Volume 8.3 6.9-10.8 fL Neutrophils (%) (Auto) 44.5 37.0-80.0 % Lymphocytes (%) (Auto) 40.8 10.0-50.0 % Monocytes (%) (Auto) 11.0 0.0-12.0 % Eosinophils (%) (Auto) 3.4 0.0-7.0 % Basophils (%) (Auto) 0.3 0.0-2.0 % Neutrophils # (Auto) 3.1 1.6-8.6 10 ^3/uL Lymphocytes # (Auto) 2.9 0.4-5.4 10 ^3/uL Monocytes # (Auto) 0.8 0-1.3 10 ^3/uL Eosinophils # (Auto) 0.2 0-0.8 10 ^3/uL Basophils # (Auto) 0 0-0.2 10 ^3/uL Nucleated Red Blood Cells 0.1 % Sodium Level 140 136-145 mmol/L Potassium Level 3.9 3.5-5.1 mmol/L Chloride Level 103 98-107 mmol/L Carbon Dioxide Level 27 20-31 mmol/L Anion Gap 10 5-15 Blood Urea Nitrogen 16 9-23 mg/dL Creatinine 0.93 0.700-1.30 mg/dL Glomerular Filtration Rate Calc 99 >90 mL/min BUN/Creatinine Ratio 17.2 10.0-20.0 Serum Glucose 84 74-106 mg/dL Calcium Level 8.7 8.7-10.4 mg/dL Total Bilirubin 0.8 0.2-1.0 mg/dL Aspartate Amino Transferase (AST) 25 13-40 U/L Alanine Aminotransferase (ALT) 33 7-40 U/L Alkaline Phosphatase 78 46-116 U/L Total Protein 6.9 5.7-8.2 g/dL Albumin 3.9 3.2-4.8 g/dL Thyroid Stimulating Hormone (TSH) 1.73 0.55-4.78 uIU/mL Troponin I High Sensitivity 19 </=54 ng/L Assessment Hypertensive urgency - Hypertensive crisis Chronic current meth abuse Active smoker Medication noncompliance Plan/Recommendation Repeat serial troponins 2 to rule out demand ischemia. Repeat EKG if any new symptoms develop. If troponins remain negative and EKG and echocardiogram are normal, no further cardiac work-up is required. Continue antihypertensive regimen with amlodipine and consider adding MIGNON inhibitor or ARB for long-term control. [employer] Counselor patient on cessation of methamphetamine, alcohol, and vaping. Emphasize medication adherence and close follow-up with primary care provider for hypertension management and lifestyle modification. Discussed with: Dr. Merritt, Cardiology Plan discussed with: Patient, Daughter NYHA Physical activity limitations: Class2(Slight)fatigue,sob (palpitatns, angina w activityv) Date of Service: Sep 16, 2025 Billing Provider: EDWARDO CHARLES Sr., MD Cardiology Common Codes: [id number] CARE 30-74 MIN ROSARIO MERRITT MD 09/17/25 1443: Family History: Hypertension G8 FATHER Allergies: Coded Allergies: NO KNOWN ALLERGIES (Unverified , 02/06/20) Home Meds No Active Prescriptions or Reported Meds Plan/Recommendation pt seen with cv team agree with MD resident plan Plan discussed with: Patient Billing Provider: ROSARIO MERRITT MD Cardiology Common Codes: NOT BILLABLE VIANEY COOK RESIDENT Sep 16, 2025 14:15 ROSARIO MERRITT MD Sep 17, 2025 14:43
[2025-09-16] MEDS: LOSARTAN POTASSIUM 25 MG TAB PO SCH (15:52)
[2025-09-17] VITALS (8 sets, daily range): BP systolic 98–143; BP diastolic 67–98; PULSE 54–69; RESP 17–20; TEMP 96.5–98.4; O2SAT 96–98
--- NOTE | 2025-09-17 07:40 | DVHPNRES ---
Progress Note Date Seen: Sep 17, 2025 Resident Creating Document: YUMIKO MAURER RESIDENT Medical Necessity Reason Pt with a Central, PICC or Fol: No Subjective Review of Systems Clayton Hitchcock is a 50-year-old male who presented to the ED with chief complaint of dyspnea and generalized weakness in Functional Class II which progressed to Functional Class IV in the past week, associated with hypertension (206/118 mmHg). Patient reports methamphetamine abuse. Denies any other associated symptoms including chest pain, palpitations, or syncope. Patient evaluated in an emergency department with diagnosis of hypertensive crisis indicating p.o. antihypertensive medication. EKG showed normal sinus rhythm with no ischemic changes, troponin negative. Past medical history: Hypertension Surgical history: Denies Family history: Father had hypertension Social history: Lives in [place]. Actively vapes, uses methamphetamine and alcohol abuse. Denies any other drug abuse. Allergies: Denies Home medication: Denies Patient seen and examined at bedside. Currently has no new complaints. Objective vital signs Vital Sign Date Time Temp Pulse Resp B/P (MAP) Pulse Ox O2 Delivery O2 Flow Rate FiO2 09/17/25 06:47 132/89 09/17/25 05:00 98.1 61 18 97 98.1 09/16/25 20:00 Room Air* 0 21 Total Intake and Output 09/16/25 09/16/25 09/17/25 15:00 23:00 07:00 Intake Total 620 ml 800 ml Balance 620 ml 800 ml medications Current Medications Medications Dose Ordered Sig/Aung Route Start Time Stop Time Status Last Admin Dose Admin Amlodipine Besylate 10 mg DAILY PO 09/16/25 10:00 09/16/25 08:29 10 MG Metoprolol Tartrate 50 mg BID PO 09/15/25 22:00 09/16/25 08:29 50 MG Sodium Chloride 10 ml Q8HR IV 09/15/25 22:00 09/17/25 05:47 10 ML Acetaminophen/ Hydrocodone Bitart 1 tab Q4HP PRN PO 09/15/25 18:30 Ondansetron HCl 4 mg Q4HP PRN IV 09/15/25 18:30 Docusate Sodium 100 mg BIDPRN PRN PO 09/15/25 18:30 Acetaminophen 650 mg Q6HP PRN PO 09/15/25 18:30 Nitroglycerin 0.4 mg Q5MINP PRN SL 09/15/25 20:15 Morphine Sulfate 2 mg Q30M PRN IV 09/15/25 20:15 Clonidine HCl 0.2 mg TID PO 09/15/25 22:00 09/17/25 05:47 0.2 MG Hydralazine HCl 10 mg Q6HP PRN IV 09/15/25 20:45 Losartan Potassium 25 mg DAILY PO 09/16/25 14:15 09/16/25 15:52 25 MG Examination Patient lying in bed, in no acute distress General: Lucid, afebrile, mucosae are moist Cardiovascular: Normal S1 and S2. No murmurs, gallops or rubs Respiratory: Normal ventilation mechanics. Clear lung sounds on auscultation Abdomen: Soft, nontender, no organomegaly, normal bowel sounds MSK/skin: Mobilizes 4 limbs. Skin is dry and warm Neurological: Oriented in 3 spheres. No motor no sensitive deficits. Pupils are isocoric and reactive laboratory and microbiology Laboratory Tests 09/16/25 04:47 Test 09/16/25 04:47 Range/Units Serum Glucose 84 74-106 mg/dL Problem List/Assessment/Plan Problem List/Assessment/Plan Assessment Hypertensive urgency - Hypertensive crisis Chronic current meth abuse Active smoker Polysubstance abuse Obesity Newly diagnosed prediabetes Plan/Recommendation Repeat serial troponins 2 to rule out demand ischemia. Repeat EKG if any new symptoms develop. If troponins remain negative and EKG and echocardiogram are normal, no further cardiac work-up is required. Continue antihypertensive regimen with amlodipine and consider adding MIGNON inhibitor or ARB for long-term control. 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 Emphasize medication adherence and close follow-up with primary care provider for hypertension and prediabetes management and lifestyle modification. Completed echocardiogram which shows LVEF 60%, moderate LVH, normal RV function and normal atrial. Goals of care discussed with patient for over 18 minutes: Full code status Discussed plan with Dr. Pratt, patient and nurses: Recommend adjusting antihypertensive medication, currently controlled. Counseled strongly on cessation of polysubstance abuse. Completed echocardiogram which showed LVEF 60% with no wall motion abnormalities. No invasive treatment required at this time. Cardiology will sign off from case. Please reconsult if deemed necessary, thank you. Plan discussed with: Patient, Other (Nurses) My Orders My Orders Orders - YUMIKO MAURER RESIDENT Procedure Category Date Status Time Electrocardigram EKG 09/17/25 Logged 06:46 Electrocardigram EKG 09/17/25 Logged 07:46 Electrocardigram EKG 09/17/25 Logged 09:46 Visit Coding Cardiology RES Date of Service: Sep 17, 2025 Billing Provider: EDWARDO CHARLES Sr., MD Cardiology Common Codes: [id number] HOSP CARE(High Cardiology Secondary Visit Cod: [id number] CARE PLAN 30 MINUTES YUMIKO MAURER RESIDENT Sep 17, 2025 07:40
[2025-09-17 07:55] LABS: Hematocrit 39.7 % (41.0-53.0); Hemoglobin 13.8 g/dL (13.5-17.5); Mean Corpuscular Hemoglobin 30.1 pg (28.0-32.0); Mean Corpuscular Volume 86.9 fL (80.0-100.0); Nucleated Red Blood Cells % 0.1 %
[2025-09-17 07:59] LABS: Chloride 104 mmol/L (98-107); Potassium 4.3 mmol/L (3.5-5.1); Sodium 139 mmol/L (136-145)
[2025-09-17 08:00] LABS: Anion Gap 9 (5-15); Carbon Dioxide 26 mmol/L (20-31)
[2025-09-17 08:05] LABS: BUN/Creatinine Ratio 20.5 (10.0-20.0); Blood Urea Nitrogen 18 mg/dL (9-23); Glucose 92 mg/dL (74-106); Triglycerides 79 mg/dL (< 150)
[2025-09-17 08:06] LABS: Magnesium 2.0 mg/dL (1.6-2.6)
[2025-09-17 08:07] LABS: Cholesterol 196 mg/dL (< 200)
[2025-09-17 08:08] LABS: Calcium 8.5 mg/dL (8.7-10.4); HDL Cholesterol 35 mg/dL (40-59)
[2025-09-17 09:19] LABS: INR 1.07 (0.9-1.15); Partial Thromboplastin Time 27.7 SEC (24.5-34.5); Prothrombin Time 11.3 sec (9.3-11.8)
--- NOTE | 2025-09-17 11:36 | DVHPN2 ---
Reviewed: Care Plan, H&P, Labs, Medications, Previous Orders, Radiology Changes from previous H/P or p: No Changes Eyes: No Pain, No Vision change, No Conjunctivae inflammation, No Eyelid inflammation, No Other, No Redness ENT: No Ear pain, No Ear discharge, No Nose pain, No Nose discharge, No Nose congestion, No Mouth pain, No Mouth swelling, No Throat pain, No Throat swelling, No Other Cardiovascular: Chest Pain; No Palpitations, No Orthopnea, No Paroxysmal Noc. Dyspnea, No Edema, No Lt Headedness; Other (Hypertension) Respiratory: No Cough, No Dry, No Shortness of breath, No SOB with excertion, No Wheezing, No Hemoptysis, No Pleuritic Pain, No Sputum, No Other Gastrointestinal: No Nausea, No Vomiting, No Abdominal Pain, No Diarrhea, No Constipation, No Melena, No Hematochezia, No Other Genitourinary: No Dysuria, No Frequency, No Incontinence, No Hematuria, No Retention, No Other Musculoskeletal: No other, No neck pain, No shoulder pain, No arm pain, No back pain, No hand pain, No leg pain, No foot pain Skin: No Rash, No Lesions, No Jaundice, No Bruising, No Other Objective Vitals Vital Signs Date Time Temp Pulse Resp B/P (MAP) Pulse Ox O2 Delivery O2 Flow Rate FiO2 09/17/25 10:59 119/68 09/17/25 10:59 59 09/17/25 08:41 97.0 20 96 97.0 09/16/25 20:00 Room Air* 0 21 Intake/Output Intake and Output 09/17/25 07:00 Intake Total 1420 ml Balance 1420 ml Intake Oral 1420 ml # Voids 3 Medications Current Medications Medications Dose Ordered Sig/Aung Route Start Time Stop Time Status Last Admin Dose Admin Amlodipine Besylate 10 mg DAILY PO 09/16/25 10:00 09/17/25 10:58 10 MG Metoprolol Tartrate 50 mg BID PO 09/15/25 22:00 09/17/25 10:59 50 MG Sodium Chloride 10 ml Q8HR IV 09/15/25 22:00 09/17/25 05:47 10 ML Acetaminophen/ Hydrocodone Bitart 1 tab Q4HP PRN PO 09/15/25 18:30 Ondansetron HCl 4 mg Q4HP PRN IV 09/15/25 18:30 Docusate Sodium 100 mg BIDPRN PRN PO 09/15/25 18:30 Acetaminophen 650 mg Q6HP PRN PO 09/15/25 18:30 Nitroglycerin 0.4 mg Q5MINP PRN SL 09/15/25 20:15 Morphine Sulfate 2 mg Q30M PRN IV 09/15/25 20:15 Clonidine HCl 0.2 mg TID PO 09/15/25 22:00 09/17/25 05:47 0.2 MG Hydralazine HCl 10 mg Q6HP PRN IV 09/15/25 20:45 Losartan Potassium 25 mg DAILY PO 09/16/25 14:15 09/17/25 10:59 25 MG Laboratory Results Laboratory Tests 09/17/25 05:05 Chemistry Test 09/17/25 05:05 Calcium Level 8.5 mg/dL (8.7-10.4) L Magnesium Level 2.0 mg/dL (1.6-2.6) Phosphorus Level 3.6 mg/dL (2.4-5.1) Coagulation Test 09/17/25 08:16 Prothrombin Time 11.3 sec (9.3-11.8) Prothrombin Time INR 1.07 (0.9-1.15) Activated Partial Thromboplast Time 27.7 SEC (24.5-34.5) Lipid panel Test 09/17/25 05:05 Cholesterol Level 196 mg/dL (< 200) HDL Cholesterol 35 mg/dL (40-59) L Triglycerides Level 79 mg/dL (< 150) HgA1c, TSH Test 09/17/25 05:05 Hemoglobin A1c 6.1 % A1C (<5.7) H Labs and/or images reviewed: Labs reviewed by me, Image(s) reviewed by me Assessment/Plan Assessment/Plan Hypertensive emergency with blood pressure 206/ 118 amlodipine metoprolol, cardiology consult for Dr. Pratt Chest pain troponin negative Urine drug screen and TSH pending Chronic current meth abuse: Counseling Chronic current smoker: Counseled Medication noncompliance: Patient says he has high blood pressure for many years and did not want to take any medications; and daughter at the bedside. Educated the patient about complications of uncontrolled blood pressure including stroke blindness heart attack dialysis and losing toes. Will DC after the echo report Plan discussed with: Patient My Orders Orders - DANNA ERWIN MD Procedure Category Date Status Time * Cardiology Consult CONS 09/16/25 Transmitted 11:43 Drug Screen LAB 09/16/25 Logged 11:46 Date of Service: Sep 17, 2025 Billing Provider: DANNA ERWIN MD Common Visit Codes: [id number] INP/OBS CARE(HIGH) DANNA ERWIN MD Sep 17, 2025 11:36
--- NOTE | 2025-09-17 13:39 | DVHSR ---
APPROVED REPORT EXAM: Two-dimensional and M-mode echocardiogram with Doppler and color Doppler. Blood Pressure: 144/103 mmHg INDICATION Hypertensive emergency RISK FACTORS Obesity: Height: 6'0", Weight: 233 DIMENSIONS LVDd4.3 (3.8-5.7cm)LA (2D)4.2 (1.9-4.0cm)Aortic Root3.8 (2.0-3.7cm) LVDs2.8 (2.5-4.0cm)LA (MM) (1.9-4.0cm)Aortic Cusp Exc2.2 (1.5-2.0cm) EF (%) 60.0 (55-70%)Rt. Atrium3.8 (1.9-4.0cm)Asc. Aorta cm IVSd1.9 (0.7-1.1cm)RV (D)4.4 (1.8-2.4cm) PWd1.8 (0.7-1.1cm) Mitral Valve MitralMitral Stenosis E wave0.89m/sMV Mean GR.mmHg A wave0.94m/sMV Peak GR.mmHg E/A ratio0.92D MVAcm2 DECEL [id number] 1/2 Timems Aortic Valve Aortic ValveAortic Stenosis V11.30m/Bernardino Mean GR.6mmHg V21.56m/Bernardino Peak GR.10mmHg LVOT Diameter2.4 (1.8-2.4cm)Doppler AVA3.77cm2 Pulmonic Valve V20.80m/s Tricuspid Valve TR Velocity2.81m/s [id number] Other Information Technically limited study due to body habitus. Conclusion lvef 60% moderate LVH normal rv function normal atria no severe valve abnormaliteis noted
[2025-09-17] MEDS: ATORVASTATIN 20 MG TAB PO SCH (21:02)
[2025-09-17 23:03] LABS: Urine Protein, UAD Negative (Negative)
[2025-09-17 23:08] LABS: Amphetamine Screen, Urine Pos (NEGATIVE); Barbiturate Scree,Urine Neg (NEGATIVE); Benzodiazephine Screen, Urine Neg (NEGATIVE); Cannabinoid Screen, Urine Neg (NEGATIVE); Cocaine Screen, Urine Neg (NEGATIVE); Opiate Scree,Urine Neg (NEGATIVE); Phencyclidine Screen, Urine Neg (NEGATIVE)
[2025-09-18 04:57] VITALS: BP 134/93; PULSE 53; RESP 18; TEMP 98.2; O2SAT 98
[2025-09-18 08:00] VITALS: PULSE 50
--- NOTE | 2025-09-18 08:16 | ECG ---
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
[2025-09-18 08:54] VITALS: BP 132/79; PULSE 56; RESP 15; TEMP 98.4; O2SAT 97
--- NOTE | 2025-09-18 12:47 | DVHPN2 ---
Reviewed: Care Plan, H&P, Labs, Medications, Previous Orders, Radiology Changes from previous H/P or p: No Changes Eyes: No Pain, No Vision change, No Conjunctivae inflammation, No Eyelid inflammation, No Other, No Redness ENT: No Ear pain, No Ear discharge, No Nose pain, No Nose discharge, No Nose congestion, No Mouth pain, No Mouth swelling, No Throat pain, No Throat swelling, No Other Cardiovascular: Chest Pain; No Palpitations, No Orthopnea, No Paroxysmal Noc. Dyspnea, No Edema, No Lt Headedness; Other (Hypertension) Respiratory: No Cough, No Dry, No Shortness of breath, No SOB with excertion, No Wheezing, No Hemoptysis, No Pleuritic Pain, No Sputum, No Other Gastrointestinal: No Nausea, No Vomiting, No Abdominal Pain, No Diarrhea, No Constipation, No Melena, No Hematochezia, No Other Genitourinary: No Dysuria, No Frequency, No Incontinence, No Hematuria, No Retention, No Other Musculoskeletal: No other, No neck pain, No shoulder pain, No arm pain, No back pain, No hand pain, No leg pain, No foot pain Skin: No Rash, No Lesions, No Jaundice, No Bruising, No Other Objective Vitals Vital Signs Date Time Temp Pulse Resp B/P (MAP) Pulse Ox O2 Delivery O2 Flow Rate FiO2 09/18/25 09:09 109/66 09/18/25 09:09 61 09/18/25 08:54 98.4 15 97 98.4 09/18/25 07:30 Room Air* 0 21 Intake/Output Intake and Output 09/18/25 07:00 Intake Total 1840 ml Balance 1840 ml Intake Oral 1840 ml # Voids 4 # Bowel Movements 2 Medications Current Medications Medications Dose Ordered Sig/Aung Route Start Time Stop Time Status Last Admin Dose Admin Amlodipine Besylate 10 mg DAILY PO 09/16/25 10:00 09/18/25 09:08 10 MG Metoprolol Tartrate 50 mg BID PO 09/15/25 22:00 09/18/25 09:09 50 MG Sodium Chloride 10 ml Q8HR IV 09/15/25 22:00 09/18/25 05:34 10 ML Acetaminophen/ Hydrocodone Bitart 1 tab Q4HP PRN PO 09/15/25 18:30 Ondansetron HCl 4 mg Q4HP PRN IV 10/24/25 18:30 Docusate Sodium 100 mg BIDPRN PRN PO 09/15/25 18:30 Acetaminophen 650 mg Q6HP PRN PO 09/15/25 18:30 Nitroglycerin 0.4 mg Q5MINP PRN SL 09/15/25 20:15 Morphine Sulfate 2 mg Q30M PRN IV 09/15/25 20:15 Clonidine HCl 0.2 mg TID PO 09/15/25 22:00 09/18/25 05:36 0.2 MG Hydralazine HCl 10 mg Q6HP PRN IV 09/15/25 20:45 Losartan Potassium 25 mg DAILY PO 09/16/25 14:15 09/18/25 09:09 25 MG Atorvastatin Calcium 40 mg HS PO 09/17/25 22:00 09/17/25 21:02 40 MG Laboratory Results Laboratory Tests 09/17/25 05:05 Urinalysis Test 09/17/25 22:32 Urine Color Light-yellow (Yellow) Urine Clarity Clear (Clear) Urine pH 6.0 (5.0-9.0) Urine Specific [place] 1.026 (1.001-1.035) Urine Protein Negative (Negative) Urine Ketones Negative (Negative) Urine Blood Negative /uL (Negative) Urine Nitrite Negative (Negative) Urine Bilirubin Negative (Negative) Urine Urobilinogen Normal mg/dL (Negative) Urine Leukocyte Esterase Negative /uL (Negative) Urine RBC 2 /hpf (0 - 3) Urine Microscopic WBC 2 /HPF (0-3) Urine Squamous Epithelial Cells Few /hpf (<5) Urine Bacteria None seen /hpf (None Seen) Urine Hyaline Casts Few /lpf (0 - 2) Urine Glucose Normal mg/dL (Normal) Labs and/or images reviewed: Labs reviewed by me, Image(s) reviewed by me Assessment/Plan Assessment/Plan Hypertensive emergency with blood pressure 206/ 118 amlodipine metoprolol, cardiology consult for Dr. Pratt echo 60% ejection fraction Chest pain troponin negative Urine drug screen and TSH pending Chronic current meth abuse: Counseling Chronic current smoker: Counseled TSH normal Medication noncompliance: Patient says he has high blood pressure for many years and did not want to take any medications; and daughter at the bedside. Educated the patient about complications of uncontrolled blood pressure including stroke blindness heart attack dialysis and losing toes. Will DC after the echo report Plan discussed with: Patient Date of Service: Sep 18, 2025 Billing Provider: DANNA ERWIN MD Common Visit Codes: [id number] INP/OBS CARE(HIGH) DANNA ERWIN MD Sep 18, 2025 12:47
[2025-09-18 13:00] VITALS: BP 119/82; PULSE 48; RESP 14; TEMP 98.5; O2SAT 97
[2025-09-18] MEDS ORDERED: LOSA-533 PO (13:02)
[2025-09-18] MEDS ORDERED: METO-158 PO (13:02)
[2025-09-18] MEDS ORDERED: ATOR-507 PO (13:02)
[2025-09-18] MEDS ORDERED: AMLO1TAB23 PO (13:02)
--- NOTE | 2025-09-18 13:08 | DVHDS2 ---
Discharge Summary Date of Admission Sep 15, 2025 at 20:06 Date of Discharge: Sep 18, 2025 Admitting Diagnosis Chest pain Wounds: None Labs/Diagnostic Data: Laboratory Results Test 09/17/25 22:32 09/17/25 08:16 09/17/25 05:05 09/16/25 14:45 Urine Color Light-yellow (Yellow) Urine Clarity Clear (Clear) Urine pH 6.0 (5.0-9.0) Urine Specific [place] 1.026 (1.001-1.035) Urine Protein Negative (Negative) Urine Ketones Negative (Negative) Urine Blood Negative /uL (Negative) Urine Nitrite Negative (Negative) Urine Bilirubin Negative (Negative) Urine Urobilinogen Normal mg/dL (Negative) Urine Leukocyte Esterase Negative /uL (Negative) Urine RBC 2 /hpf (0 - 3) Urine Microscopic WBC 2 /HPF (0-3) Urine Squamous Epithelial Cells Few /hpf (<5) Urine Bacteria None seen /hpf (None Seen) Urine Hyaline Casts Few /lpf (0 - 2) Urine Glucose Normal mg/dL (Normal) Urine Opiates Screen Neg (NEGATIVE) Urine Fentanyl Screen Neg (NEGATIVE) Urine Barbiturates Screen Neg (NEGATIVE) Urine Phencyclidine Screen Neg (NEGATIVE) Urine Amphetamines Screen Pos (NEGATIVE) Urine Benzodiazepines Screen Neg (NEGATIVE) Urine Cocaine Screen Neg (NEGATIVE) Urine Cannabinoids Screen Neg (NEGATIVE) Prothrombin Time 11.3 sec (9.3-11.8) Prothrombin Time INR 1.07 (0.9-1.15) Activated Partial Thromboplast Time 27.7 SEC (24.5-34.5) White Blood Count 8.5 10^3/uL (4.4-10.8) Red Blood Count 4.57 10^6/uL (4.5-5.90) Hemoglobin 13.8 g/dL (13.5-17.5) Hematocrit 39.7 % (41.0-53.0) Mean Corpuscular Volume 86.9 fL (80.0-100.0) Mean Corpuscular Hemoglobin 30.1 pg (28.0-32.0) Mean Corpuscular Hemoglobin Concent 34.6 g/dL (32.0-36.0) Red Cell Distribution Width 13.4 % (11.8-14.3) Platelet Count 244 10^3/uL (140-450) Mean Platelet Volume 8.2 fL (6.9-10.8) Neutrophils (%) (Auto) 49.5 % (37.0-80.0) Lymphocytes (%) (Auto) 36.0 % (10.0-50.0) Monocytes (%) (Auto) 10.7 % (0.0-12.0) Eosinophils (%) (Auto) 3.3 % (0.0-7.0) Basophils (%) (Auto) 0.5 % (0.0-2.0) Neutrophils # (Auto) 4.2 10 ^3/uL (1.6-8.6) Lymphocytes # (Auto) 3.1 10 ^3/uL (0.4-5.4) Monocytes # (Auto) 0.9 10 ^3/uL (0-1.3) Eosinophils # (Auto) 0.3 10 ^3/uL (0-0.8) Basophils # (Auto) 0 10 ^3/uL (0-0.2) Nucleated Red Blood Cells 0.1 % Sodium Level 139 mmol/L (136-145) Potassium Level 4.3 mmol/L (3.5-5.1) Chloride Level 104 mmol/L (98-107) Carbon Dioxide Level 26 mmol/L (20-31) Anion Gap 9 (5-15) Blood Urea Nitrogen 18 mg/dL (9-23) Creatinine 0.88 mg/dL (0.700-1.30) Glomerular Filtration Rate Calc 103 mL/min (>90) BUN/Creatinine Ratio 20.5 (10.0-20.0) Serum Glucose 92 mg/dL (74-106) Hemoglobin A1c 6.1 % A1C (<5.7) Calcium Level 8.5 mg/dL (8.7-10.4) Phosphorus Level 3.6 mg/dL (2.4-5.1) Magnesium Level 2.0 mg/dL (1.6-2.6) Triglycerides Level 79 mg/dL (< 150) Cholesterol Level 196 mg/dL (< 200) LDL Cholesterol 162 mg/dL (< 100) HDL Cholesterol 35 mg/dL (40-59) Vitamin B12 Level 312 pg/mL (211-911) Vitamin D 25-Hydroxy 27.9 ng/mL (30.0-100) Troponin I High Sensitivity 11 ng/L (</=54) Test 09/16/25 04:47 Total Bilirubin 0.8 mg/dL (0.2-1.0) Aspartate Amino Transferase (AST) 25 U/L (13-40) Alanine Aminotransferase (ALT) 33 U/L (7-40) Alkaline Phosphatase 78 U/L (46-116) Total Protein 6.9 g/dL (5.7-8.2) Albumin 3.9 g/dL (3.2-4.8) Thyroid Stimulating Hormone (TSH) 1.73 uIU/mL (0.55-4.78) Other Laboratory Tests 09/17/25 05:05 Brief Hx & Hospital Course: 58-year-old male chronic current meth abuser history of hypertension stopped taking medications for blood pressure for many years came in complaining of chest pain troponin negative x3 blood pressure 206/118 treated with the amlodipine metoprolol losartan. Lipitor given for high cholesterol TSH is normal drug screen shows methamphetamine also Coreg current smoker he was counseled about quitting smoking and using alcohol he was also advised about taking blood pressure medications regularly. He was explained about the consequences and complications of uncontrolled blood pressure including stroke blindness heart attack and dialysis and losing the toes. He verbalized understanding. Discharged home on meds he will follow up with the primary Dr in one week: Echocardiogram 60 percent ejection fraction. Consults/Reason for consult Cardiology Operations or Procedures Echocardiogram Condition at Discharge: Fair Final Diagnosis/Problems List Hypertensive emergency with blood pressure 206/ 118 amlodipine metoprolol, cardiology consult for Dr. Pratt echo 60% ejection fraction Chest pain troponin negative Urine drug screen positive for amphetamine TSH normal Chronic current meth abuse: Counseling Chronic current smoker: Counseled TSH normal Medication noncompliance: Patient says he has high blood pressure for many years and did not want to take any medications; and daughter at the bedside. Educated the patient about complications of uncontrolled blood pressure including stroke blindness heart attack dialysis and losing toes. Discharge Disposition: Home Discharge Instruct/Medications Diet: Cardiac 2g Na,low cholest Activity: Light activity Follow Up/Referral: Stop doing methamphetamine Fill blood pressure medications today and start taking meds Follow up with your primary Dr Medications: Amlodipine Metoprolol tartrate Losartan Lipitor Transmitted to pharmacy Scheduled Amlodipine Besylate (Amlodipine Besylate), 1 TAB PO DAILY Atorvastatin Calcium (Lipitor), 1 TAB PO QPM Losartan Potassium (Losartan Potassium), 1 TAB PO DAILY Metoprolol Tartrate (Metoprolol Tartrate), 50 MG PO BID 39 (Time taken for discharge summary 39 minutes) Discharge Statement: "Patient was advised to return to the ER or call 911 if any headaches, dizziness, shortness of breath, chest pain, abdominal pain, bleeding, fevers, or worsening of medical condition. Patient was counseled about treatment plan, medications, possible side effects, patientverbalized understanding. All questions were answered to the best of my ability. This discharge took greater then 30 minutes in planning, reviewing documentation, counseling the patient, and discussing with other team members." ASSESSMENT ASSESSMENT Hospital Course Uneventful Assessment Hypertensive emergency with blood pressure 206/ 118 amlodipine metoprolol, cardiology consult for Dr. Pratt echo 60% ejection fraction Chest pain troponin negative Urine drug screen positive for amphetamine TSH normal Chronic current meth abuse: Counseling Chronic current smoker: Counseled TSH normal Medication noncompliance: Patient says he has high blood pressure for many years and did not want to take any medications; and daughter at the bedside. Educated the patient about complications of uncontrolled blood pressure including stroke blindness heart attack dialysis and losing toes. Date of Service: Sep 18, 2025 Billing Provider: DANNA ERWIN MD Common Visit Codes: [id number] INP/OBS CARE(HIGH) DANNA ERWIN MD Sep 18, 2025 13:07
== END 2025-09-18 15:45 | disposition home or self-care (01) | DRG 199 ==
LOC: ER 16:18 → EDBD 16:18 → OVERFLOW 20:06 → TELE-WESTW 23:53
PROVIDERS: ADMIT Family Medicine; ATTEND Family Medicine
DX: I16.1 Hypertensive emergency (principal); E66.9 Obesity, unspecified; F15.10 Other stimulant abuse, uncomplicated; R73.03 Prediabetes; I10 Essential (primary) hypertension; F17.210 Nicotine dependence, cigarettes, uncomplicated; Z68.31 Body mass index [BMI] 31.0-31.9, adult; Z91.148 Patient's other noncompliance with medication regimen for other reason; Z82.49 Family history of ischemic heart disease and other diseases of the circulatory system; Z71.51 Drug abuse counseling and surveillance of drug abuser; Z71.6 Tobacco abuse counseling
CPT/HCPCS: 36415; 80048; 80053; 80061; 80307; 81001; 82306; 82607; 83036; 83735; 84100; 84443; 84484; 85025; 85610; 85730; 93005; 93306; 96374; 99291; 99292; G0378